=== PATIENT | male | born 1965 | race Caucasian/White ===

== ENCOUNTER 2017-11-22 12:36 | Inpatient (IN) | payer BC, OTHER ==
[~2017-11-22] VITALS: Ht 185.4 cm; Wt 93.0 kg
[2017-11-22] MEDS ORDERED: HYDROXYZINE PAMOATE 25 MG CAPSULE PO PRN (13:00)
[2017-11-22] MEDS ORDERED: ONDANSETRON 4 MG/2 ML VIAL IM PRN (13:00)
[2017-11-22] MEDS ORDERED: diphenhydrAMINE 50 MG CAPSULE PO PRN (13:00)
[2017-11-22] MEDS ORDERED: BUPRENORPHINE HCL 2 MG TAB.SUBL SL PRN (13:00)
[2017-11-22] MEDS ORDERED: DICYCLOMINE HCL 20 MG TABLET PO PRN (13:00)
[2017-11-22] MEDS ORDERED: ACETAMINOPHEN 325 MG TABLET PO PRN (13:00)
[2017-11-22] MEDS ORDERED: NICOTINE 14 MG/24HR PATCH TD PRN (13:00)
[2017-11-22] MEDS ORDERED: MAG HYDROX/AL HYDROX/SIMETH 30 ML LIQUID UDC PO PRN (13:00)
[2017-11-22] MEDS ORDERED: CLONIDINE HCL 0.1 MG TABLET PO PRN (13:00)
[2017-11-22] MEDS ORDERED: MIRALAX 17 GM POWD.PACK PO PRN (13:00)
[2017-11-22] MEDS ORDERED: NICOTINE POLACRILEX 4 MG GUM-PK OF TEN BC PRN (13:00)
[2017-11-22] MEDS ORDERED: MAGNESIUM HYDROXIDE 30 ML LIQUID UDC PO PRN (13:00)
[2017-11-22] MEDS ORDERED: LOPERAMIDE HCL 2 MG CAPSULE PO PRN ×2 (13:00)
[2017-11-22] MEDS ORDERED: ONDANSETRON ODT 4 MG TAB.RAPDIS SL PRN (13:00)
[2017-11-22] MEDS ORDERED: METHOCARBAMOL 750 MG TABLET PO PRN (13:00)
[2017-11-22 13:15] VITALS: BP 118/78
--- NOTE | 2017-11-22 13:15 | NUR ---
PRE-ASSESSMENT: Pre-Assessment done at intake office, client is A/O x4, he presents with flat affect, anxious mood, agitated, restless, flushed face, and moist skin. Pt appears to be moderately intoxicated. Client is disheveled and unshaven. Client avoids eye contact. Pressured and manic speech, he has difficulty staying still, T 98.4 , RR 20, HR 117, spO2 @ 96% on RA, BP 118/78. Pt c/o chronic back, right shoulder, bilateral ankles and foot pain #8/10. He is fully ambulatory. He denies any allergies; he denies any history of seizures. Pt does have history of withdrawal induced delirium. PMH: chronic low back pain, BPH, depression, anxiety, insomnia and ADHD. Client denies any suicidal/homicidal ideation at this time. He was admitted under 5150 psych hold for SI in October, stayed in hospital for 30 days for detox. Medications taken at home: Tamsulosin 0.4 mg QHS, Gabapentin 800 mg TID, Oxycodone 10 mg QID. Substance history: Pt has used meth socially and recreationally for 25 years in his 20's. Pt started using oxycodone three years ago in 2014 post surgery of herniated disk. Pt last used meth yesterday and oxycodone today in the morning.
[2017-11-22] MEDS ORDERED: GABA800T2 PO (13:40)
[2017-11-22] MEDS ORDERED: TAMS0.4C34 PO (13:40)
--- NOTE | 2017-11-22 13:45 | NUR ---
Admission note: Pt is 52 y/o male admitted to [facility] for opiate and meth dependency. He is the primary source of information. He is single and homeless. Pt is admitted under the care of Dr. Moyer. Currently takes oxycodone 40 mg PO/day and meth 0.5-1mg IV/day. He has not slept in 2-4 days. He has had multiple (10+) treatment programs. Pt denies any allergies or history of withdrawal seizures. Urine provided by pt for urine drug screen, body check performed and belonging check by T in intake office. Pt appears anxious, unable to sit still, manic and pressured speech. Pt moderately intoxicated. Flat affect with anxious mood. Pt c/o pain 8/10 chronic back pain. He is fully ambulatory. Pt denies auditory or visual hallucinations. Denies c/o N/V/D. Pt compains of constipation x3 days. Current COWS 10. Admitting vital signs are 118/78, HR 117, Resp 20, O2Sat 96%, Temp 98.4. Family medical history of CAD. Will provide education, reassurance and teachings on medications and plan of care. Safety measures in place. Bed lowest/locked position, side rails up X2, call light within reach. Will continue to monitor withdrawal symptoms.
[2017-11-22] MEDS: LORAZEPAM 1 MG TABLET PO PRN ×2 (13:55→17:11)
[2017-11-22] MEDS: GABAPENTIN 400 MG CAPSULE PO SCH ×2 (13:56→21:18)
--- NOTE | 2017-11-22 14:00 | NUR ---
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 Moyer.
[2017-11-22 14:32] LABS: BASOPHILS # (AUTO) 0.1 K/uL (0.0-8.0); BASOPHILS % (AUTO) 0.7 % (0.0-2.0); EOSINOPHILS # (AUTO) 0.1 K/uL (0.0-0.7); EOSINOPHILS % (AUTO) 1.3 % (0.0-7.0); HEMATOCRIT 50.3 % (36.7-47.1); HEMOGLOBIN 17.5 g/dL (12.5-16.3); LYMPHOCYTES # (AUTO) 1.4 K/uL (20.0-40.0); LYMPHOCYTES % (AUTO) 13.3 % (20.5-51.5); MEAN CORPUSCULAR HEMOGLOBIN 30.7 uug (23.8-33.4); MEAN CORPUSCULAR HGB CONC 35 g/dL (32.5-36.3); MEAN CORPUSCULAR VOLUME 88.4 fL (73.0-96.2); NEUTROPHILS % (AUTO) 75.7 % (38.5-71.5); PLATELET COUNT (AUTO) 339 K/uL (152-348); RED BLOOD CELL COUNT(AUTO) 5.69 MIL/uL (4.06-5.63); WHITE BLOOD COUNT (AUTO) 10.5 K/uL (3.6-10.2)
[2017-11-22 14:46] LABS: ALANINE AMINOTRANSFERASE 44 U/L (16-63); ALKALINE PHOSPHATASE 78 U/L (50-136); ASPARTATE AMINOTRANSFERASE 24 U/L (15-37); BILIRUBIN,TOTAL 0.9 mg/dL (0.2-1.0); CARBON DIOXIDE 24 mmol/L (21-32); CHLORIDE 100 mmol/L (98-107); CREATININE 1.3 mg/dL (0.6-1.3); GLUCOSE 131 mg/dL (74-106); POTASSIUM 3.7 mmol/L (3.5-5.1); TOTAL PROTEIN, SERUM 7.2 g/dL (6.4-8.2); UREA NITROGEN, BLOOD 24 mg/dL (7-18)
--- NOTE | 2017-11-22 15:00 | NUR ---
REASSESS ATIVAN- PT REPORTS ANXIETY AND AGITATION, MINIMALLY RESOLVED. PT ASKING FOR SEROQUEL
[2017-11-22 15:24] LABS: ETHANOL < 3 MG/DL (0-0)
[2017-11-22 16:00] VITALS: BP 103/58
[2017-11-22 16:35] LABS: *AMPHETAMINE, URINE POSITIVE (NEGATIVE); *BARBITURATE, URINE NEGATIVE (NEGATIVE); *CANNABINOID, URINE NEGATIVE (NEGATIVE); *COCCAINE, URINE NEGATIVE (NEGATIVE); *OPIATE, URINE NEGATIVE (NEGATIVE); *PHENCYCLIDINE SCREEN,URINE NEGATIVE (NEGATIVE)
[2017-11-22] MEDS: QUETIAPINE FUMARATE 25 MG TABLET PO SCH (17:10)
[2017-11-22] MEDS: IBUPROFEN 600 MG TABLET PO PRN (17:10)
--- NOTE | 2017-11-22 17:20 | NUR ---
PRN ATIVAN 2MG PO FOR ANXIETY PRN ROBAXIN 750 MG PO FOR BODY ACHES PRN MOTRIN 600 MG FOR BACK PAIN #7/10
--- NOTE | 2017-11-22 18:06 | NUR ---
REASSESS PRN ATIVAN, ROBAXIN AND MOTRIN; PT CALM, RESTING AND APPEARS TO BE SLEEPING, AROUSABLE TO VOICE AND LIGHT TOUCH. RESP EVEN AND UNLABORED.
--- NOTE | 2017-11-22 18:46 | NUR ---
End of Shift note- Pt is 52 y/o male admitted to [facility] for opiate and meth dependency. At 1600 cows 11. VSS. PRN Ativan and Seroquel administered for anxiety. Pt can be irritable, oppositional, and agitated. Adequate PO fluids 1000 ml, voids X 4. BM X2. Pt reports NKA and FULL CODE. Safety measures in place. Bed lowest/locked position, side rails up X2, call light within reach. Will endorse to oncoming nurse.
--- NOTE | 2017-11-22 19:30 | NUR ---
START OF SHIFT NOTE : Pt is 52 y/o male admitted to [facility] for opiate and meth dependency. Pt reports NKA, Reg.Diet and FULL CODE. Pt. started on Subutex taper on 11/23/2017.PRN ATIVAN, ROBAXIN, MOTRIN were given during a day shift. COWS=10 at 16:00. Pt. is sitting in the room, restless, anxious, tremor bilaterally, pressured speech . He complains of anxiety, insomnia, mild body ache, flashes , restless legs. Instructed patient to maintain adequate fluid and nutritional intake. Educated patient regarding the importance of compliance to treatment and medication regime, patient verbalized understanding. Education provided in safety and hygiene care. Patient verbalized understanding. Safety measures in place, side rails up x2, bed locked in low position, call light within reach. Will continue to monitor and observe closely.
[2017-11-22 20:00] VITALS: BP 121/73
[2017-11-22] MEDS ORDERED: LORAZEPAM 1 MG TABLET PO SCH (21:00)
[2017-11-22] MEDS: QUETIAPINE FUMARATE 200 MG TABLET PO SCH (21:18)
[2017-11-22] MEDS: TAMSULOSIN HCL 0.4 MG CAP.SR.24H PO SCH (21:18)
[2017-11-23] MEDS: QUETIAPINE FUMARATE 25 MG TABLET PO SCH ×4 (06:00→18:13)
--- NOTE | 2017-11-23 06:41 | NUR ---
END OF SHIFT NOTE : Pt is 52 y/o male admitted to [facility] for opiate and meth dependency. Pt reports NKA, Reg.Diet and FULL CODE. Pt. started on Subutex taper on 11/23/2017. No PRN given during a day shift. COWS=9 at 04:00. Pt. slept at 00:00 and 06:00, Seroquel 25mg NOT given. Pt. spilled Coke on his bed around 05:00, all linen changed, education provided in safety and hygiene care. Pt. remains cooperative and friendly, follow commands. Patient verbalized understanding. Intake= 2,571 ml, voided x4, slept=6 hours. Safety measures in place, side rails up x2, bed locked in low position, call light within reach. Will continue to monitor and observe closely.
[2017-11-23 08:00] VITALS: BP 133/84
--- NOTE | 2017-11-23 08:00 | NUR ---
START OF SHIFT Received report from night nurse, 52 year old male admitted for Opioids and Meth withdrawal. Patient placed on 5 days Subutex. Per endorsement patient did not receive any PRN'S and slept for 6 hours, Last COWS was-9. Received patient alert awake anxious agitated,runny nose,watery eyes, body aches, goose bumps, restless, bilateral hand tremors noted. Patient is due for schedule medications. Educated patient with current plan of care of medications regimen and importance of attending groups and activities with good verbal understanding. Safety measures in place. Will cont with plan of care.
[2017-11-23] MEDS: BUPRENORPHINE HCL 2 MG TAB.SUBL SL SCH ×3 (08:39→21:32)
[2017-11-23] MEDS: GABAPENTIN 400 MG CAPSULE PO SCH ×3 (08:39→21:32)
[2017-11-23] MEDS: LORAZEPAM 1 MG TABLET PO PRN (08:47)
--- NOTE | 2017-11-23 08:47 | NUR ---
PRN ATIVAN Patient reported anxiety, agitation, restless, light headed, sweats. PRN Ativan 2mg PO given as ordered. Will cont to monitor and reassess.
[2017-11-23] MEDS ORDERED: TUBERCULIN,PURIF.PROT.DERIV. 5 TU/0.1 ML TEST ID ONE (09:00)
--- NOTE | 2017-11-23 09:47 | NUR ---
ATIVAN REASSESSMENT Patient reported Ativan was effective in controlling s/s of withdrawal. All safety measures in place.
[2017-11-23 11:06] LABS: HEPATITIS B SURFACE AG Negative (Negative)
[2017-11-23 12:00] VITALS: BP 107/63
[2017-11-23 16:00] VITALS: BP 116/76
--- NOTE | 2017-11-23 19:10 | NUR ---
END OF SHIFT NOTE Gave report to night nurse, 52 year old male remains A/O x4. Patient cont with Subutex taper tolerating well. Patient presented with anxiety, agitation, tremors, light headed, nausea, difficulty sitting still, yawning. Patient was given scheduled medications and was given PRN Ativan 2mg for increased s/s for withdrawal noted to be effective. Patient rested in his room most of the time. Encourage pt to develop coping skills and utilization of non pharmacological intervention. Vital signs WNL. Encourage PO fluids as tolerated. Safety measures in place. Patient endorsed to night nurse in stable condition.
--- NOTE | 2017-11-23 19:30 | NUR ---
START OF SHIFT NOTE : Pt is 52 y/o male admitted to [facility] for opiate and meth dependency. Pt reports NKA, Reg.Diet and FULL CODE. Pt. started on Subutex taper on 11/23/2017. No PRN was giving during a day shift. COWS=12 at 16:00. Pt. is resting in the room watching TV, anxious, tremor bilaterally, monotone speech. He complains of difficulty falling and staying asleep, increased level of anxiety, mild body ache, flashes. Instructed patient to maintain adequate fluid and nutritional intake. Educated patient regarding the importance of compliance to treatment and medication regime, patient verbalized understanding Encouraged to attend group and participate in activities due to self isolation. Encouraged healthy diet while in detox. Encouraged patient to participate in group therapies and verbalize feelings. Patient verbalized understanding. Safety measures in place, side rails up x2, bed locked in low position, call light within reach. Will continue to monitor and observe closely.
[2017-11-23 20:00] VITALS: BP 119/76
[2017-11-23] MEDS: TAMSULOSIN HCL 0.4 MG CAP.SR.24H PO SCH (21:32)
[2017-11-23] MEDS: QUETIAPINE FUMARATE 200 MG TABLET PO SCH (21:32)
[2017-11-24] MEDS: QUETIAPINE FUMARATE 25 MG TABLET PO SCH ×5 (06:00→23:50)
--- NOTE | 2017-11-24 06:34 | NUR ---
END OF SHIFT NOTE : Pt is 52 y/o male admitted to [facility] for opiate and meth dependency. Pt reports NKA, Reg.Diet and FULL CODE. Pt. started on Subutex taper on 11/23/2017. No PRN given during a day shift. COWS=8 at 04:00. Encouraged to attend group and participate in activities due to self isolation. Education provided in safety and hygiene care. Patient verbalized understanding. Intake= 710 ml, voided x1, slept=9 hours. Safety measures in place, side rails up x2, bed locked in low position, call light within reach. Will continue to monitor and observe closely.
[2017-11-24 08:00] VITALS: BP 140/88
--- NOTE | 2017-11-24 08:00 | NUR ---
START OF SHIFT Received report from night nurse, 52 year old male admitted for Opioids and Meth withdrawal. Patient cont on 5 days Subutex taper tolerating well. Per endorsement patient did not receive any PRN'S and slept for 9 hours, Last COWS was-8. Received patient alert awake anxious agitated,runny nose,watery eyes, body aches, restless, bilateral hand tremors noted. Patient is due for schedule medications. Educated patient with current plan of care of medications regimen and importance of attending groups and activities with good verbal understanding. Safety measures in place. Will cont with plan of care.
[2017-11-24] MEDS: GABAPENTIN 400 MG CAPSULE PO SCH ×3 (08:30→20:22)
[2017-11-24] MEDS ORDERED: BUPRENORPHINE HCL 2 MG TAB.SUBL SL SCH (09:00)
[2017-11-24 12:00] VITALS: BP 141/86
[2017-11-24] MEDS ORDERED: KETOROLAC TROMETHAMINE 30 MG INJ IM PRN (12:30)
[2017-11-24] MEDS: BUPRENORPHINE HCL 2 MG TAB.SUBL SL SCH ×2 (14:38→20:20)
--- NOTE | 2017-11-24 14:41 | NUR ---
PRN VISTARIL Patient c/o of anxiety, agitation, restless. PRN Vistaril 25mg PO given as ordered. Will cont to monitor and reassess.
--- NOTE | 2017-11-24 15:41 | NUR ---
VISTARIL REASSESSMENT Per patient medication was effective anxiety agitation and restless decreased.
[2017-11-24 16:00] VITALS: BP 121/78
--- NOTE | 2017-11-24 19:06 | NUR ---
END OF SHIFT NOTE Patient presented with anxiety and agitation, restless, bilateral hand tremors noted. Patient was admitted for Opioid withdrawal and cont on Subutex taper tolerating well. During shift patient received PRN Vistaril 25mg PO for anxiety noted to be effective. Patient rested in his room most of the day, encourage patient to attend groups and activities to learn new coping skills. Patient verbalized understanding. Skin intact warm and dry to touch. Vital signs WNL. patient able to consumed all of his meals, encourage PO fluids as ordered. All safety measures in place. Patient endorsed to night nurse in stable condition.
--- NOTE | 2017-11-24 19:30 | NUR ---
Start of Shift Pt is a 52 y/o male admitted 11/22/17 for medically managed withdrawal/detox from Oxycodone and Methamphetamine salts via a 5 day Subutex taper. Patient is found in a disheveled room, clothes, towels and bedding on floor and chair, laying supine on bed with bath towels covering lower and upper portions of body. Patient awakened to voice, avoidant eye contact "staring into space", voice normal, thought processes appear to be normal. Evening meds reviewed with patient. Will continue to monitor patient, promptly attending to all needs.
[2017-11-24 20:00] VITALS: BP 130/76
[2017-11-24] MEDS: TAMSULOSIN HCL 0.4 MG CAP.SR.24H PO SCH (20:20)
[2017-11-24] MEDS: BACLOFEN 10 MG TABLET PO SCH (20:20)
[2017-11-24] MEDS: QUETIAPINE FUMARATE 200 MG TABLET PO SCH (20:20)
[2017-11-25] VITALS: BP 120/70
--- NOTE | 2017-11-25 04:00 | NUR ---
VS's COWS Deferred 0400 VS's and COWS deferred r/t patient sleeping/refused. RR 14, even and nonlabored. Will continue to monitor promptly attending to all patient needs.
[2017-11-25] MEDS: QUETIAPINE FUMARATE 25 MG TABLET PO SCH ×3 (05:52→17:00)
--- NOTE | 2017-11-25 06:53 | NUR ---
End of Shift Pt is a 52 y/o male admitted 11/22/17 for medically managed withdrawal/detox from Oxycodone and Methamphetamine salts via a 5 day Subutex taper. No PRN meds for shift. Pt slept for 7 hours, with 1096 mls intake, 1 voids and 0 BM's. Will continue to monitor patient, promptly attending to all needs.
--- NOTE | 2017-11-25 07:42 | NUR ---
START OF SHIFT Received report from night nurse, 52 year old male admitted for Opioids and Meth withdrawal. Patient cont on 5 days Subutex taper tolerating well. Per endorsement patient did not receive any PRN'S and slept for 7 hours, Last COWS was-8. Received patient asleep responsive to verbal and tactile stimuli. Breathing normal no SOB noted. Skin intact warm and dry to touch. Patient is due for schedule medications. Safety measures in place. Will cont with plan of care.
[2017-11-25 08:00] VITALS: BP 107/63
[2017-11-25] MEDS: BACLOFEN 10 MG TABLET PO SCH ×2 (08:45→21:35)
[2017-11-25] MEDS: BUPRENORPHINE HCL 2 MG TAB.SUBL SL SCH ×3 (08:45→21:36)
[2017-11-25] MEDS: GABAPENTIN 400 MG CAPSULE PO SCH ×3 (08:45→21:35)
[2017-11-25] MEDS ORDERED: ESCITALOPRAM OXALATE 10 MG TABLET PO SCH (09:30)
[2017-11-25] MEDS ORDERED: HYDROXYZINE PAMOATE 25 MG CAPSULE PO PRN (11:30)
[2017-11-25 12:00] VITALS: BP 123/81
[2017-11-25] MEDS ORDERED: CLON0.1T14 PO (13:43)
[2017-11-25] MEDS ORDERED: DICY20TA28 PO (13:43)
[2017-11-25] MEDS ORDERED: HYDR-3895 PO (13:43)
[2017-11-25] MEDS ORDERED: TAMS-3 PO (13:43)
[2017-11-25] MEDS ORDERED: METH-406 PO (13:43)
[2017-11-25] MEDS ORDERED: IBUP-1955 PO (13:43)
[2017-11-25] MEDS ORDERED: DIPH50CA37 PO (13:43)
[2017-11-25] MEDS ORDERED: GABA-536 PO (13:43)
[2017-11-25] MEDS: ESCITALOPRAM OXALATE 10 MG TABLET PO SCH (15:00)
--- NOTE | 2017-11-25 18:52 | NUR ---
END OF SHIFT NOTE Patient presented with anxiety and agitation, restless, bilateral hand tremors noted. Patient was given scheduled medications. Patient was admitted for Opioid withdrawal and cont on Subutex taper tolerating well. During shift patient did not receive any PRN'S. Patient was seen by psychiatrist with new order to give Lexapro 10mg PO medication administered as ordered and patient tolerated well. Patient rested in his room most of the day, encourage patient to attend groups and activities to learn new coping skills. Patient verbalized understanding. Skin intact warm and dry to touch. Vital signs WNL. Patient able to consumed 100% of his meals, encourage PO fluids as ordered. All safety measures in place. Patient endorsed to night nurse in stable condition.
--- NOTE | 2017-11-25 19:45 | NUR ---
Start of Shift Note Received a 52 y/o male px, admitted for medically supervised withdrawal from Oxycodone. Px was placed on 5 Day Subutex taper. Px is tolerating it. Last reported COWS 9 by AM shift nurse. During the rounds at 1945, px was asleep. Note on room's door says "Do not disturb". Unfinished snacks and drinks noted on top of the bed side table. Bed on lowest position, side rails up 2x and call light within reach. We'll continue to monitor.
[2017-11-25 20:00] VITALS: BP 129/83
--- NOTE | 2017-11-25 20:00 | NUR ---
COWS deferred COWS deferred due to the px is asleep, to assess if the px is awake per doctor's order. We'll continue to monitor.
--- NOTE | 2017-11-25 21:30 | NUR ---
Px wakes up Px woke up. Px appears disheveled and anxious. Px has poor eye contact. Px stated "please don't bother me to much, I need to sleep". No complaints made. We'll continue to monitor.
[2017-11-25] MEDS: QUETIAPINE FUMARATE 200 MG TABLET PO SCH (21:35)
[2017-11-25] MEDS: CLONIDINE HCL 0.1 MG TABLET PO SCH (21:36)
[2017-11-25] MEDS: TAMSULOSIN HCL 0.4 MG CAP.SR.24H PO SCH (21:36)
[2017-11-26] VITALS: BP 94/55
[2017-11-26] MEDS: QUETIAPINE FUMARATE 25 MG TABLET PO SCH ×3 (00:16→12:14)
[2017-11-26 04:00] VITALS: BP 101/60
--- NOTE | 2017-11-26 04:00 | NUR ---
COWS deferred COWS deferred at 0000 and 0400 due to the px is asleep, to assess if the px is awake per doctor's order. We'll continue to monitor.
--- NOTE | 2017-11-26 07:14 | NUR ---
End of Shift Note During the shift, px slept most of the time. No PRN medications given. Px's oral intake is 750 ml, voided 1x, No BM. Px slept for 10.5 hours. At 0630, px is asleep on bed in right side lying position. Last COWS 7. Bed on lowest position, side rails up 2x and call light within reach. We'll continue to monitor. Px endorsed to AM shift nurse.
--- NOTE | 2017-11-26 07:37 | NUR ---
START OF SHIFT Received report from night nurse, 52 year old male admitted for Opioids and Meth withdrawal. Patient cont on 5 days Subutex taper tolerating well. Per endorsement patient did not receive any PRN'S and slept for 10.5 hours, Last COWS was-7. Received patient alert awake anxious agitated, body aches, restless, bilateral hand tremors noted. Patient is due for schedule medications. Educated patient with current plan of care of medications regimen and importance of attending groups and activities with good verbal understanding. Safety measures in place. Will cont with plan of care.
[2017-11-26 08:00] VITALS: BP 153/88
[2017-11-26] MEDS ORDERED: BUPRENORPHINE HCL 2 MG TAB.SUBL SL SCH (09:00)
[2017-11-26] MEDS: BACLOFEN 10 MG TABLET PO SCH (09:21)
[2017-11-26] MEDS: CLONIDINE HCL 0.1 MG TABLET PO SCH ×3 (09:22→21:36)
[2017-11-26] MEDS: GABAPENTIN 400 MG CAPSULE PO SCH ×3 (09:22→21:36)
[2017-11-26] MEDS: ESCITALOPRAM OXALATE 10 MG TABLET PO SCH (09:22)
[2017-11-26] MEDS: IBUPROFEN 600 MG TABLET PO PRN (09:22)
--- NOTE | 2017-11-26 09:22 | NUR ---
PRN MOTRIN Patient c/o of lower back pain 12/11. PRN Motrin 600mg PO given as ordered. Will cont to monitor and reassess.
--- NOTE | 2017-11-26 10:22 | NUR ---
MOTRIN REASSESSMENT Patient reported medication was effective pain lower to 2/10.
[2017-11-26] MEDS ORDERED: BENZOCAINE/MENTH/CETYLPYRD LOZENGE MM PRN (11:15)
[2017-11-26] MEDS ORDERED: NORMAL SALINE NASAL 45 ML BOTTLE NS PRN (11:15)
[2017-11-26 12:00] VITALS: BP 107/66
[2017-11-26] MEDS: BACLOFEN 20 MG TABLET PO SCH ×2 (14:17→21:36)
[2017-11-26 16:00] VITALS: BP 97/61
[2017-11-26] MEDS ORDERED: QUETIAPINE FUMARATE 25 MG TABLET PO PRN (16:45)
--- NOTE | 2017-11-26 19:23 | NUR ---
END OF SHIFT NOTE Patient presented with anxiety, agitation, Patient admitted for Opioid,Meth withdrawal and completed his Subutex tolerated well. During shift patient received PRN Motrin for lower back pain noted to be effective. Patient set for discharge in am. Patient did not attend any groups and activities and rested in his room most of the day. Encourage patient to attend groups. Patient stated " I just wanted to rest please leave me alone" Vital signs WNL. All safety measures in place. Patient endorsed to night nurse in stable condition.
[2017-11-26 20:00] VITALS: BP 110/65
--- NOTE | 2017-11-26 20:00 | NUR ---
Start of Shift Note Received a 52 y/o male px, admitted for medically supervised withdrawal from Oxycodone. Px is to be D/C tomorrow 11/27/2017. Px finished a 5 Day Subutex taper. Last reported COWS 4 by AM shift nurse. During the rounds at 1999, Px states "Nobody is helping me here mentally and emotionally. I am not ready to go to rehab. Maybe, Ill go there then Ill go out. The doctor came here this morning and left. I am scared of people, that is why I am not going to groups. I am even scared of bedroom light that's why I am not turning on the lights here on my room". Px was educated about the importance of groups and rehabilitation after detox. Px verbalized "Please don't bother me tonight, I want to sleep". Bed on lowest position, side rails up 2x and call light within reach. We'll continue to monitor.
[2017-11-26] MEDS: TAMSULOSIN HCL 0.4 MG CAP.SR.24H PO SCH (21:36)
[2017-11-26] MEDS: QUETIAPINE FUMARATE 200 MG TABLET PO SCH (21:36)
[2017-11-27] VITALS: BP 111/69
--- NOTE | 2017-11-27 07:16 | NUR ---
End of Shift Note Px is to be D/C today, 11/27/2017. During the shift, px didn't receive any PRN medications. Px refused VS taking at 0400. Respirations are even and unlabored. Pxs oral intake is 1,200 ml, voided 3x, with No BM. Px slept for 9 hours. Last COWS 8. At 0630, px is asleep on bed in right side lying position. Bed on lowest position, side rails up 2x and call light within reach. We'll continue to monitor. Px endorsed to AM shift nurse.
--- NOTE | 2017-11-27 07:30 | NUR ---
START OF SHIFT Pt 52 y/o male admitted for oxycodone and meth. Pt received in room on bed with eyes closed resting, but easily arousable to name. Pt alert and oriented to name, place, and time. Perrla. Skin warm and dry to touch. Respirations even and unlabored. It was reported that pt slept for 9 hours last night. Pt completed a 5 day subutex taper. Pt is scheduled to be discharged to [facility] today. Bed on lowest position with side rails x2 up for safety. Call light within reach.
[2017-11-27 08:00] VITALS: BP 132/60
[2017-11-27 08:19] VITALS: BP 132/60
[2017-11-27] MEDS: BACLOFEN 20 MG TABLET PO SCH (08:19)
[2017-11-27] MEDS: GABAPENTIN 400 MG CAPSULE PO SCH (08:19)
[2017-11-27] MEDS: CLONIDINE HCL 0.1 MG TABLET PO SCH (08:19)
[2017-11-27] MEDS: ESCITALOPRAM OXALATE 10 MG TABLET PO SCH (08:20)
--- NOTE | 2017-11-27 08:27 | NUR ---
PRN Pt anxious with pressured speech noted. Vistaril po prn per MD order given and tolerated well.
--- NOTE | 2017-11-27 08:28 | NUR ---
PRN Pt states has 7/10 back pain. Toradol IM prn per MD order given and tolerated well.
--- NOTE | 2017-11-27 09:27 | NUR ---
PRN EVAL Pt observed in room. No pressured speech noted.
--- NOTE | 2017-11-27 09:28 | NUR ---
JOSE VOGEL Pt states back pain 10/11. Pt observed standing in room.
--- NOTE | 2017-11-27 09:52 | NUR ---
END OF SHIFT Pt 52 y/o male admitted for oxycodone and meth. Pt alert and oriented to name, place, and time. Perrla. Skin warm and dry to touch. Respirations even and unlabored. No hand tremors noted. Pt completed a 5 day subutex taper. Pt discharged to [facility] via private transport. No home medications, belongings in cabinet, or belongings in cassette noted. Pt prescriptions, belongings, and discharge papers packed in pt bag. Pt denies any SI/HI. VS wnl. No distress noted.
== END 2017-11-27 09:52 | disposition other institution (70) | DRG 895 ==
LOC: SRC 12:36
PROVIDERS: ADMIT Internal Medicine; ATTEND Internal Medicine
PROC: HZ2ZZZZ Detoxification Services for Substance Abuse Treatment (ICD-10-PCS; principal; 2017-11-22)
PROC: HZ51ZZZ Individual Psychotherapy for Substance Abuse Treatment, Behavioral (ICD-10-PCS; 2017-11-24)
DX: F11.23 Opioid dependence with withdrawal (principal); F15.221 Other stimulant dependence with intoxication delirium; I15.9 Secondary hypertension, unspecified; F17.210 Nicotine dependence, cigarettes, uncomplicated; F41.9 Anxiety disorder, unspecified; F90.9 Attention-deficit hyperactivity disorder, unspecified type; G89.29 Other chronic pain; G47.00 Insomnia, unspecified; Z59.0 Homelessness; Z59.1 Inadequate housing; N40.0 Benign prostatic hyperplasia without lower urinary tract symptoms; F32.9 Major depressive disorder, single episode, unspecified; E86.0 Dehydration; D72.823 Leukemoid reaction; R73.9 Hyperglycemia, unspecified; M54.5 Low back pain; R79.89 Other specified abnormal findings of blood chemistry
CPT/HCPCS: 36415; 80307; 80324; 83735; 85025; 86580; 86592; 86705; 86803; 87340; 87806; 93005; G0480; J1885